=== PATIENT | male | born 1970 | race Caucasian/White ===

== ENCOUNTER 2020-07-15 08:08 | Emergency (ER) | payer MEDICARE, MEDICAID ==
[~2020-07-15] VITALS: Ht 182.9 cm; Wt 72.7 kg
[~2020-07-15 08:08] MED LIST: OMEP-84 PO; VALP250C44 PO
[2020-07-15] MEDS ORDERED: HYDROcodone/acetaminophen 5mg/325mg tablet PO ONE (08:20)
[2020-07-15] MEDS ORDERED: ondansetron 4mg rapidly disintigrating tab PO ONE (08:20)
[2020-07-15] MEDS ORDERED: orphenadrine citrate 60mg/2ml inj. IM ONE (08:20)
[2020-07-15] MEDS ORDERED: acetaminophen 325mg tablet PO ONE (08:20)
[2020-07-15 08:39] VITALS: BP 119/81
[2020-07-15] MEDS ORDERED: CYCL-1 PO (09:05)
[2020-07-15] MEDS ORDERED: ACET-1025 PO (09:05)
[2020-07-15] MEDS ORDERED: HYDR-3965 PO (09:05)
== END 2020-07-15 09:37 | disposition home or self-care (01) ==
LOC: ER 08:09
DX: M79.604 Pain in right leg (principal); Z85.3 Personal history of malignant neoplasm of breast; Z98.890 Other specified postprocedural states; Z79.899 Other long term (current) drug therapy
CPT/HCPCS: 93971; 96372; 99284; J2360

== ENCOUNTER 2023-09-30 11:57 | Emergency (ER) | payer MEDICARE, MEDICAID ==
[~2023-09-30] VITALS: Ht 172.7 cm; Wt 75.9 kg
[~2023-09-30 11:57] MED LIST changes: +CYCL-1 PO; -OMEP-84 PO
[2023-09-30 13:26] LABS: ALANINE AMINOTRANSFERASE 37 U/L (12-78); ALBUMIN 2.8 G/DL (3.4-5.0); ALBUMIN/GLOBULIN RATIO 0.7 (1.1-1.5); ALKALINE PHOSPHATASE 52 IU/L (46-116); ANION GAP 4 (8-16); ASPARTATE AMINO TRANSFERASE 24 U/L (10-37); BILIRUBIN,TOTAL 0.4 MG/DL (0.1-1.0); BLOOD UREA NITROGEN 29 MG/DL (7-18); BUN/CREATININE RATIO 34.1 (10.0-20.0); CALCIUM 8.9 MG/DL (8.5-10.1); CHLORIDE 112 MMOL/L (99-107); CREATININE 0.85 MG/DL (0.60-1.10); GLUCOSE 103 MG/DL (70-104); POTASSIUM 4.3 MMOL/L (3.5-5.1); SODIUM 146 MMOL/L (135-145); TOTAL CARBON DIOXIDE 30.2 MMOL/L (24-32); TOTAL PROTEIN 6.8 G/DL (6.4-8.2); eCRCL 96 ML/MIN; eGFR > 90 ML/MIN
[2023-09-30 13:31] LABS: BASOPHILS % (AUTO) 0.2 % (0-1); EOSINOPHILS # (AUTO) 0.1 X10'3 (0-0.9); EOSINOPHILS % (AUTO) 1.7 % (0-6); HEMATOCRIT 45.2 % (42.0-52.0); HEMOGLOBIN 15.4 g/dl (14.0-17.9); LYMPHOCYTES # (AUTO) 1.8 X10'3 (1.1-4.8); LYMPHOCYTES % (AUTO) 36.9 % (21-51); MEAN CORPUSCULAR HEMOGLOBIN 34.1 PG (27.0-31.0); MEAN CORPUSCULAR VOLUME 100.3 FL (78-98); MEAN PLATELET VOLUME 8.3 FL (7.4-10.4); MONOCYTES # (AUTO) 0.6 X10'3 (0-0.9); MONOCYTES % (AUTO) 11.8 % (2-12); NEUTROPHILS # (AUTO) 2.4 X10'3 (1.8-7.7); NEUTROPHILS % (AUTO) 49.4 % (42-75); PLATELET COUNT 149 X10'3 (140-440); RED BLOOD COUNT 4.51 X10'6 (4.70-6.10); RED CELL DISTRIBUTION WIDTH 13.6 % (11.5-14.5); WHITE BLOOD COUNT 4.8 X10'3 (4.5-11.0)
[2023-09-30 13:32] LABS: PRO BRAIN NATRIURETIC PEPTIDE 43 PG/ML (0-125)
[2023-09-30 13:57] VITALS: TEMP 97.8
[2023-09-30] MEDS: normal saline 1000ML IV soln IVB ONE (15:34)
[2023-09-30 16:10] VITALS: BP 124/70; PULSE 55; RESP 15; O2SAT 95
== END 2023-09-30 17:15 | disposition home or self-care (01) ==
LOC: ER 11:57
DX: E86.0 Dehydration (principal); M79.89 Other specified soft tissue disorders; Z79.899 Other long term (current) drug therapy; Z85.841 Personal history of malignant neoplasm of brain
CPT/HCPCS: 36415; 80053; 83880; 85025; 99284; J7040

== ENCOUNTER 2023-12-30 09:52 | Emergency (ER) | payer MEDICARE, MEDICAID ==
[~2023-12-30] VITALS: Ht 182.9 cm; Wt 75.0 kg
[2023-12-30 09:57] VITALS: BP 120/84; PULSE 90; RESP 16; TEMP 97; O2SAT 97
== END 2023-12-30 10:29 | disposition home or self-care (01) ==
LOC: ER 09:54
DX: K14.6 Glossodynia (principal); Z79.899 Other long term (current) drug therapy; Z85.841 Personal history of malignant neoplasm of brain
CPT/HCPCS: 99281